=== PATIENT | male | born 1940 | race Caucasian/White ===

== ENCOUNTER 2017-09-17 10:40 | Day surgery (SDC) | payer OTHER ==
[2017-09-17 11:08] VITALS: TEMP 97.5
[2017-09-17] MEDS ORDERED: LR 1,000 ML IV ONE (11:10)
--- NOTE | 2017-09-17 11:22 | PDANEPAE ---
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 recently treated for pna. 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 - Renal History Hx Renal Disorders: No - Liver History Hx Hepatic Disorders: No - Neurological & Psychiatric Hx Hx Neurological and Psychiatric Disorders: No - Cancer History Hx Cancer: No Cancer History Comment: pre-cancerous ca- multiple treatments - Congenital Disorder History Hx Congenital Disorders: No - GI History GERD: moderate Hx Gastrointestinal Disorders: Yes Gastrointestinal History Comment: reflux - Other Health History Other Health History: wears reading glasses - Chronic Pain History Chronic Pain: No - Surgical History Prior Surgeries: neck surgeries x4- first was removal al mediastinal mass and last 3 trying to get voice back. 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 ANE Review of Systems Review of Systems: - Exercise capacity METS (RN): 4 METS ANE Patient History - Allergies Allergies/Adverse Reactions: No Known Allergies Allergy (Verified 08/11/17 15:41) - Home Medications Home medications: home medication list seen and reviewed Home Medications: Lisinopril 08/11/17 [Last Taken 09/15/17] Omeprazole 08/11/17 [Last Taken 09/16/17] - NPO status NPO Since - Liquids (Date): 09/17/17 NPO Since - Liquids (Time): 00:40 NPO Since - Solids (Date): 09/16/17 NPO Since - Solids (Time): 09:00 - Anes Hx Anes Hx: no prior problems - Smoking Hx Smoking Status: Never smoked - Family Anes Hx Family Hx Anesthesia Complications: none ANE Labs/Vital Signs - Vital Signs Blood Pressure: 128/91 Heart Rate: 77 Respiratory Rate: 14 Height: 185.42 cm Weight: 73.482 kg ANE Physical Exam - Airway Neck exam: FROM Mallampati Score: Class 1 Mouth exam: normal dental/mouth exam - Pulmonary Pulmonary: no respiratory distress - Cardiovascular Cardiovascular: regular rate and rhythym - ASA Status ASA Status: II ANE Anesthesia Plan Anesthesia Plan: GA with mask
[2017-09-17] MEDS ORDERED: PROPOFOL 200 MG/20 ML VIAL ONE ×2 (11:33)
[2017-09-17] MEDS ORDERED: LIDOCAINE 2% 100 MG/5 ML SYR ONE (11:39)
[2017-09-17] MEDS ORDERED: MIDAZOLAM 2 MG/2 ML VIAL ONE (12:03)
[2017-09-17] MEDS ORDERED: fentaNYL 100 MCG/2 ML INJ ONE (12:04)
--- NOTE | 2017-09-17 12:12 | PDGENHP ---
History & Physical History of Present Illness: phx large polyps removed in piecemeal earlier 2017 Pertinent Past, Social, Family History: alcohol 1 per day, no tobacco. no cc in fhx Relevant Physical Exam: a+ox3. CTA. S1S2, RRR. +Bs, soft NT Cardiorespiratory Assessment: class 2
--- NOTE | 2017-09-17 12:13 | PDPROPOC ---
Sedation Plan of Care Sedation Plan of Care: vital signs stable, mental status noted, patient educated of risks, benefits, alternatives, patient can tolerate sedation ASA Classification: ASA 2 Planned drugs: fentanyl, midazolam Mallampati Score: Class 2 Mallampati Reference Image: Patient passed 3-3-2 rule?: Yes
[2017-09-17] MEDS ORDERED: fentaNYL 100 MCG/2 ML INJ IVP ONE (13:01)
[2017-09-17] MEDS ORDERED: MIDAZOLAM 10 MG/2 ML VIAL IVP ONE (13:01)
--- NOTE | 2017-09-17 13:03 | POSTOPPROG ---
Post Op Note Date of Operation: 09/17/17 Surgeon: Sammy Alvarez Anesthesia: IV Sedation (fentanyl 100mcg IV and versed 4mg IV) Pre-op Diagnosis: phs large polyps removed in piecemeal Post-op Diagnosis: polyps, residula polyp tissue, new polyps, vickers-diverticulosis Indication: phx polyps Procedure: colon with snare, bx, APC and mana ink injection, clip Findings: large prox TC polyp snared, inkned, residual polyp, snared, bx, APC, recal Inf/Abcess present in the surg proc area at time of surgery?: No EBL: Minimal (few ml) Total fluids administered: 200ml LR Complications: none immediate
--- NOTE | 2017-09-17 13:14 | GIREPORT ---
[facility] Surgical Services - Endoscopy Department Patient Name: Mitchell Pierre Procedure Date: 09/17/2017 11:27 AM Patient Type: Outpatient Attending MD/ ER Physician: Brooklyn Gilmore Procedure: Colonoscopy Indications: Surveillance: Personal history of piecemeal removal of large sessile ad enoma on last colonoscopy (less than 1 year ago) Providers: Ronald Alvarez MD Medicines: Fentanyl 100 micrograms IV, Midazolam 4 mg IV Complications: No immediate complications. Estimated blood loss: Minimal. Description of Procedure: After obtaining informed consent, the scope was passed under direct vis ion. Throughout the procedure, the patient's blood pressure, pulse, and oxyg en saturations were monitored continuously. The Colonoscope with irrigatio n channel was introduced through the anus and advanced to the terminal il eum, with identification of the appendiceal orifice and IC valve. The colono scopy was performed without difficulty. The patient tolerated the procedure w ell. The quality of the bowel preparation was fair except the sigmoid colon was poor. Findings: The digital rectal exam was normal. The terminal ileum appeared normal. A small amount of semi-liquid stool was found in the proximal transvers e colon, in the ascending colon and in the cecum, making visualization difficult. Lavage of the area was performed using copious amounts of st erile water, resulting in clearance with fair visualization. A large amount of stool was found in the rectum, in the sigmoid colon, in the descending colon and in the distal transverse colon, interfering wi th visualization. Lavage of the area was performed using copious amounts o f sterile water, resulting in incomplete clearance with continued poor visualization. Two sessile polyps were found in the proximal transverse colon. The kevin yps were 13 to 23 mm in size. These polyps were removed with a piecemeal technique using a cold snare. Resection and retrieval were complete. Ar ea was tattooed with an injection of 3 mL of Luly ink. Estimated blood lo ss was minimal. A post polypectomy scar was found in the proximal transverse colon. The re was residual polypoid tissue. The polyp was removed with a cold snare. Resection and retrieval were complete. Estimated blood loss: 5 mL requi ring treatment with placement of hemostatic clip(s). A post polypectomy scar was found in the mid transverse colon. There wa s residual polypoid tissue. Biopsies were taken with a cold forceps for histology. Coagulation for destruction of remaining portion of lesion u sing argon beam at 2 liters/minute and 30 zabala was successful. Estimated bl ood loss was minimal. A tattoo was seen in the distal transverse colon. The tattoo site appea red normal. Multiple small and large-mouthed diverticula were found in the sigmoid colon, descending colon, transverse colon and ascending colon. A 3 mm polyp was found in the rectum. The polyp was semi-sessile. The p olyp was removed with a piecemeal technique using a cold biopsy forceps. Resection and retrieval were complete. Estimated blood loss was minimal . The exam was otherwise without abnormality. Estimated Blood Loss: Estimated blood loss was minimal. Post Op Diagnosis: - The examined portion of the ileum was normal. - Stool in the proximal transverse colon, in the ascending colon and in the cecum. - Stool in the rectum, in the sigmoid colon, in the descending colon an d in the distal transverse colon. - Two 13 to 23 mm polyps in the proximal transverse colon, removed piec emeal using a cold snare. Resected and retrieved. Tattooed. - Post-polypectomy scar in the proximal transverse colon. - Post-polypectomy scar in the mid transverse colon. Biopsied. Treated with argon beam coagulation. - A tattoo was seen in the distal transverse colon. The tattoo site jules eared normal. - Diverticulosis in the sigmoid colon, in the descending colon, in the transverse colon and in the ascending colon. - One 3 mm polyp in the rectum, removed piecemeal using a cold biopsy forceps. Resected and retrieved. - The examination was otherwise normal. Recommendation: - Await pathology results. - My office will call with the pathology result with 5-7 days. If you h ave not heard from my office by 12-14, do not assume the pathology is sophia l, please call [phone] to get the pathology reults. - Repeat colonoscopy in 6 months for surveillance based on pathology results. At hospital for possible APC, with IV sedation. - Avoid Aspirin and NSAID's for 7-10 days except as used for cardic or stroke prevention. - High fiber diet. - 30-35 grams of dietary fiber per day. Can use supplemental fiber. - A high fiber diet may decrease risk of complications from diverticulo sis. There is no need to avoid seeds or nuts. - Patient has a contact number available for emergencies. The signs and symptoms of potential delayed complications were discussed with the pat ient. Return to normal activities tomorrow. Written discharge instructions we re provided to the patient. - Discharge patient to home (ambulatory). - Return to primary care physician as previously scheduled. - Thank you for allowing me to help in your patient's care. Do not hesi lucio to call with any questions. Attending Participation: I personally performed the entire procedure. Kim Cardenas M.D Ronald Alvarez MD 09/17/2017 1:14:18 PM This report has been signed electronicallyMathehali Alvarez MD Number of Addenda: 0 Note Initiated On: 09/17/2017 11:27 AM Total Procedure Duration Time 0 hours 36 minutes 16 seconds [email or web address]
[2017-09-17 14:01] VITALS: BP 121/84; PULSE 72; RESP 16; O2SAT 92
== END 2017-09-17 14:00 | disposition home or self-care (01) ==
LOC: FSGY 10:40
PROVIDERS: ATTEND Internal Medicine Gastroenterology
DX: D12.3 Benign neoplasm of transverse colon (principal); K62.1 Rectal polyp; K57.30 Diverticulosis of large intestine without perforation or abscess without bleeding
CPT/HCPCS: J2001; J2250; J2704; J3010

== ENCOUNTER → 2018-02-16 | Outpatient (CLI) | payer OTHER | LOC: FIMAGING 09:49 | PROVIDERS: ATTEND Internal Medicine Pulmonary Disease | DX: J90 Pleural effusion, not elsewhere classified (principal); R91.1 Solitary pulmonary nodule; J98.4 Other disorders of lung; J45.30 Mild persistent asthma, uncomplicated ==

== ENCOUNTER → 2018-03-19 | Outpatient (CLI) | payer OTHER | LOC: FIMAGING 08:45 | PROVIDERS: ATTEND Internal Medicine Pulmonary Disease | DX: J44.9 Chronic obstructive pulmonary disease, unspecified (principal); K76.89 Other specified diseases of liver ==

== ENCOUNTER 2018-03-23 09:48 | Day surgery (SDC) | payer OTHER ==
[2018-03-23] MEDS ORDERED: NS 500 ML IV ONE (09:51)
[2018-03-23] MEDS ORDERED: LIDOCAINE 1% 2 ML INJ ID PRN (09:51)
[2018-03-23] MEDS ORDERED: MIDAZOLAM 2 MG/2 ML VIAL ONE (10:58)
[2018-03-23] MEDS ORDERED: fentaNYL 100 MCG/2 ML INJ ONE (10:59)
--- NOTE | 2018-03-23 11:07 | PDGENHP ---
History & Physical Chief Complaint: phx polyps History of Present Illness: phx polyp removed in piecemeal Pertinent Past, Social, Family History: tobaccco none. alcohol one glass per day. FHX - no cc. PMH = HTN Relevant Physical Exam: A+ox3. CTA. S1S2,RRR. +BS, soft nt Cardiorespiratory Assessment: class 2
--- NOTE | 2018-03-23 11:08 | PDPROPOC ---
Sedation Plan of Care Sedation Plan of Care: vital signs stable, mental status noted, patient educated of risks, benefits, alternatives, patient can tolerate sedation ASA Classification: ASA 2 Planned drugs: fentanyl, midazolam Mallampati Score: Class 1 Mallampati Reference Image: Patient passed 3-3-2 rule?: Yes
[2018-03-23] MEDS ORDERED: MIDAZOLAM 2 MG/2 ML VIAL IVP ONE (11:47)
[2018-03-23] MEDS ORDERED: fentaNYL 100 MCG/2 ML INJ IVP ONE (11:48)
[2018-03-23 12:22] VITALS: BP 114/75
--- NOTE | 2018-03-23 12:28 | GIREPORT ---
[facility] Surgical Services - Endoscopy Department Patient Name: Mitchell Pierre Procedure Date: 03/23/2018 10:56 AM Patient Type: Outpatient Attending MD/ ER Physician: Brooklyn Gilmore Procedure: Colonoscopy Indications: Surveillance: Piecemeal removal of large sessile adenoma last colonosco py (< 3 yrs) Providers: Ronald Alvarez MD Medicines: Fentanyl 100 micrograms IV, Midazolam 6 mg IV Complications: No immediate complications. Estimated blood loss: None. Description of Procedure: After obtaining informed consent, the scope was passed under direct vis ion. Throughout the procedure, the patient's blood pressure, pulse, and oxyg en saturations were monitored continuously. The Colonoscope with irrigatio n channel was introduced through the anus and advanced to the terminal il eum, with identification of the appendiceal orifice and IC valve. The colono scopy was performed without difficulty. The patient tolerated the procedure w ell. The quality of the bowel preparation was fair. Findings: The digital rectal exam was normal. The terminal ileum appeared normal. Multiple small and large-mouthed diverticula were found in the sigmoid colon, descending colon, transverse colon and ascending colon. A tattoo was seen in the proximal transverse colon and in the distal transverse colon. A post-polypectomy scar was found at the tattoo site. There was no evidence of residual polyp tissue. The exam was otherwise without abnormality. A 2 mm polyp was found in the mid transverse colon. The polyp was sessi le. The polyp was removed with a cold biopsy forceps. Resection and retriev al were complete. Estimated blood loss was minimal. Estimated Blood Loss: Estimated blood loss was minimal. Post Op Diagnosis: - Preparation of the colon was fair. - The examined portion of the ileum was normal. - Diverticulosis in the sigmoid colon, in the descending colon, in the transverse colon and in the ascending colon. - A tattoo was seen in the proximal transverse colon and in the distal transverse colon. A post-polypectomy scar was found at the tattoo site. There was no evidence of residual polyp tissue. - The examination was otherwise normal. - One 2 mm polyp in the mid transverse colon, removed with a cold biops y forceps. Resected and retrieved. Recommendation: - High fiber diet indefinitely. - 30-35 grams of dietary fiber per day. Can use supplemental fiber. - A high fiber diet may decrease risk of complications from diverticulo sis. There is no need to avoid seeds or nuts. - Repeat colonoscopy in 2 years for surveillance. - Patient has a contact number available for emergencies. The signs and symptoms of potential delayed complications were discussed with the pat ient. Return to normal activities tomorrow. Written discharge instructions we re provided to the patient. - Continue present medications. - Discharge patient to home (ambulatory). - Return to primary care physician as previously scheduled. - Thank you for allowing me to help in your patient's care. Do not hesi lucio to call with any questions. Attending Participation: I personally performed the entire procedure. Kim Cardenas M.D Ronald Alvarez MD 03/23/2018 12:27:48 PM This report has been signed electronicallyMathew MD Kim Number of Addenda: 0 Note Initiated On: 03/23/2018 10:56 AM Total Procedure Duration Time 0 hours 22 minutes 50 seconds [email or web address]
== END 2018-03-23 12:55 | disposition home or self-care (01) ==
LOC: FSGY 09:48
PROVIDERS: ATTEND Internal Medicine Gastroenterology
PROC: 0DBL8ZX Excision of Transverse Colon, Via Natural or Artificial Opening Endoscopic, Diagnostic (ICD-10-PCS; principal; 2018-03-23 11:00)
DX: D12.3 Benign neoplasm of transverse colon (principal); J45.30 Mild persistent asthma, uncomplicated; R91.1 Solitary pulmonary nodule
CPT/HCPCS: J2250; J3010

== ENCOUNTER 2019-04-29 06:40 | Inpatient (IN) | payer OTHER | END 2019-04-30 17:59 | disposition home or self-care (01) | LOC: F1N 06:40 ==